=== PATIENT | male | born 1950 | race Caucasian/White ===

== ENCOUNTER → 2019-01-14 | Outpatient (CLI) | payer MEDICARE ==
[~2019-01-14] MED LIST: ACETAMINOPHEN325 M1 PO; ADULT LOW DOSE81 MG PO; B12INJ SUBQ; DESYREL50 MG PO; FLEXERIL PO; FLOMAX PO; LISINOPRIL5 MG PO; NORCO 5-325 TA1 EACH PO; VERAPAMIL ER180 MG PO; VERAPAMIL HCL180 M1 PO; [UNRECOGNIZED DRUG - REMARK]
== END ==
LOC: CAT 10:33
DX: I25.10 Atherosclerotic heart disease of native coronary artery without angina pectoris (principal)